=== PATIENT | female | born 1955 | race African-American/Black ===

== ENCOUNTER 2017-09-23 10:54 | Inpatient (IN) ==
[2017-09-23] MEDS ORDERED: SODIUM CHLORIDE 0.9% 500 ML IV STA (11:21)
[2017-09-23] MEDS ORDERED: PANTOPRAZOLE 40 MG VIAL IV STA (11:21)
[2017-09-23] MEDS ORDERED: PANTOPRAZOLE 40 MG VIAL IV ONE (11:26)
[2017-09-23 11:32] LABS: Basophils % 0.7 % (0.0-0.8); Eosinophils # 0.2 10*3/uL (0.0-0.87); Eosinophils % 2.8 % (0.00-10.9); Hemoglobin 9.6 GM/DL (12.0-16.0); Immature Granulocytes % 0.3 %; Immature Granulocytes Absolute 0.02 #; Lymphocytes # 0.9 10*3/uL (1.4-4.0); Lymphocytes % 14.1 % (21.3-54.2); Mean Corpuscular HGB Conc 34.3 GM/DL (32-36); Mean Corpuscular Hemoglobin 30 PG (27-34); Mean Corpuscular Volume 88.6 FL (87-102); Mean Platelet Volume 9.3 FL (9.6-12.0); Monocytes # 0.8 10*3/uL (0.11-0.8); Monocytes % 12.8 % (1.7-12.7); Neutrophils # 4.2 10*3/uL (1.4-7.4); Neutrophils % 69.3 % (38.7-73.9); Platelet Count 300 T/CUMM (130-400); Red Blood Count 3.16 MC/CUMM (3.8-5.5); Red Cell Distribution Width 11.9 % (9.3-17.3); White Blood Count 6.1 T/CUMM (4-12)
[2017-09-23 11:41] LABS: PT Patient Result 10.5 SECS
[2017-09-23 11:51] LABS: Alanine Aminotransferase 17 U/L (13-56); Albumin 3.6 G/DL (3.4-5.0); Alkaline Phosphatase 100 U/L (45-117); Aspartate Amino Transferase 19 U/L (0-37); Bilirubin,Total < 0.39 MG/DL (0.2-1.0); Blood Urea Nitrogen 66 MG/DL (7-18); Calcium 8.8 MG/DL (8.5-10.1); Glucose 73 MG/DL (74-106); Osmolality,Calculated 270.4 MOS/KG (273-304); Sodium 126 MMOL/L (136-145); Total Protein 7.4 G/DL (6.4-8.3)
[2017-09-23] MEDS ORDERED: ONDANSETRON 4 MG/2 ML VIAL IV PRN (13:07)
[2017-09-23] MEDS ORDERED: DEXTROSE 50% 25 GM/50 ML SYRINGE IV ONE (14:32)
[2017-09-23] MEDS ORDERED: DEXTROSE 50% 25 GM/50 ML VIAL IV ONE (14:35)
[2017-09-23] MEDS: SODIUM CHLORIDE 0.9% 1,000 ML IV SCH ×2 (15:01→22:40)
[2017-09-23] MEDS ORDERED: MECLIZINE 25 MG TABLET PO PRN (16:13)
[2017-09-23] MEDS ORDERED: ALBUTEROL 2.5 MG/3 ML NEB RESP TX PRN (19:00)
[2017-09-23] MEDS: MONTELUKAST 10 MG TABLET PO SCH (20:22)
[2017-09-23] MEDS: risperiDONE 0.5 MG TABLET PO SCH (20:22)
[2017-09-23] MEDS: PANTOPRAZOLE 40 MG VIAL IV SCH (22:30)
[2017-09-24 06:09] LABS: Basophils % 0.8 % (0.0-0.8); Eosinophils # 0.2 10*3/uL (0.0-0.87); Eosinophils % 5.4 % (0.00-10.9); Hematocrit 24.2 VOL% (35.7-47.0); Hemoglobin 8.4 GM/DL (12.0-16.0); Immature Granulocytes % 0.3 %; Immature Granulocytes Absolute 0.01 #; Lymphocytes # 1.1 10*3/uL (1.4-4.0); Mean Corpuscular HGB Conc 34.7 GM/DL (32-36); Mean Corpuscular Hemoglobin 31 PG (27-34); Mean Platelet Volume 9.4 FL (9.6-12.0); Monocytes # 0.6 10*3/uL (0.11-0.8); Monocytes % 17.4 % (1.7-12.7); Neutrophils # 1.7 10*3/uL (1.4-7.4); Neutrophils % 46.1 % (38.7-73.9); Platelet Count 300 T/CUMM (130-400); Red Blood Count 2.75 MC/CUMM (3.8-5.5); Red Cell Distribution Width 11.9 % (9.3-17.3); White Blood Count 3.7 T/CUMM (4-12)
[2017-09-24 06:16] LABS: Calcium 8.1 MG/DL (8.5-10.1); Osmolality,Calculated 276.7 MOS/KG (273-304); Potassium 4.4 MMOL/L (3.5-5.1)
[2017-09-24 06:43] LABS: Eosinophils 6 % (0-10); Lymphocytes 32 % (20-55); Platelet Estimate Adequate; Segmented Neutrophils 50 % (50-85); Total Cells Counted 100
[2017-09-24 06:44] LABS: Giant Platelets Few; Hypochromasia 1+; Ovalocytes Slight
[2017-09-24] MEDS: SODIUM CHLORIDE 0.9% 1,000 ML IV SCH ×2 (07:01→17:31)
[2017-09-24] MEDS ORDERED: LIDOCAINE 100 MG/5 ML SYRINGE ONE (10:00)
[2017-09-24] MEDS ORDERED: GLYCOPYRROLATE 0.4 MG/2 ML VIAL ONE (10:00)
[2017-09-24] MEDS ORDERED: PROPOFOL 200 MG/20 ML VIAL IV ONE (10:00)
[2017-09-24] MEDS ORDERED: SODIUM CHLORIDE 0.9% 1,000 ML IV PRN (10:03)
[2017-09-24] MEDS: risperiDONE 0.5 MG TABLET PO SCH ×2 (10:23→21:01)
[2017-09-24] MEDS: FERROUS SULFATE 325 MG TABLET PO SCH (10:23)
[2017-09-24] MEDS: CYANOCOBALAMIN 500 MCG TABLET PO SCH (10:23)
[2017-09-24] MEDS: CETIRIZINE 10 MG TABLET PO SCH (10:23)
[2017-09-24] MEDS: PANTOPRAZOLE 40 MG VIAL IV SCH ×2 (10:23→21:05)
[2017-09-24 15:51] LABS: Hematocrit 29.5 VOL% (35.7-47.0)
[2017-09-24] MEDS: MONTELUKAST 10 MG TABLET PO SCH (21:01)
[2017-09-24] MEDS: METOCLOPRAMIDE 10 MG/10 ML UDCUP PO SCH (21:02)
[2017-09-25] MEDS: SODIUM CHLORIDE 0.9% 1,000 ML IV SCH ×3 (01:16→18:00)
[2017-09-25 04:25] LABS: Basophils # 0.1 10*3/uL (0.0-0.2); Basophils % 1.1 % (0.0-0.8); Eosinophils # 0.2 10*3/uL (0.0-0.87); Hematocrit 29.2 VOL% (35.7-47.0); Hemoglobin 9.8 GM/DL (12.0-16.0); Immature Granulocytes % 0.7 %; Immature Granulocytes Absolute 0.03 #; Mean Corpuscular HGB Conc 33.6 GM/DL (32-36); Mean Corpuscular Hemoglobin 31 PG (27-34); Mean Platelet Volume 9.5 FL (9.6-12.0); Monocytes # 0.8 10*3/uL (0.11-0.8); Monocytes % 16.8 % (1.7-12.7); Neutrophils # 2.4 10*3/uL (1.4-7.4); Neutrophils % 54.4 % (38.7-73.9); Platelet Count 309 T/CUMM (130-400); Red Blood Count 3.21 MC/CUMM (3.8-5.5); Red Cell Distribution Width 12.1 % (9.3-17.3); White Blood Count 4.5 T/CUMM (4-12)
[2017-09-25 04:56] LABS: Calcium 8.1 MG/DL (8.5-10.1); Osmolality,Calculated 285.1 MOS/KG (273-304); Potassium 4.9 MMOL/L (3.5-5.1)
[2017-09-25 05:48] LABS: Band Neutrophils 1 % (0-10); Eosinophils 5 % (0-10); Lymphocytes 33 % (20-55); Segmented Neutrophils 56 % (50-85); Total Cells Counted 100
[2017-09-25 05:49] LABS: Platelet Estimate Normal
[2017-09-25] MEDS: PANTOPRAZOLE 40 MG VIAL IV SCH ×2 (10:02→21:00)
[2017-09-25] MEDS: METOCLOPRAMIDE 10 MG/10 ML UDCUP PO SCH ×2 (10:04→21:00)
[2017-09-25] MEDS: risperiDONE 0.5 MG TABLET PO SCH ×2 (10:04→21:00)
[2017-09-25] MEDS: CYANOCOBALAMIN 500 MCG TABLET PO SCH (10:04)
[2017-09-25] MEDS: FERROUS SULFATE 325 MG TABLET PO SCH (10:05)
[2017-09-25] MEDS: CETIRIZINE 10 MG TABLET PO SCH (10:05)
[2017-09-25] MEDS: MONTELUKAST 10 MG TABLET PO SCH (21:00)
[2017-09-26] MEDS: SODIUM CHLORIDE 0.9% 1,000 ML IV SCH ×2 (02:04→09:43)
[2017-09-26 06:04] LABS: Basophils # 0.1 10*3/uL (0.0-0.2); Eosinophils # 0.3 10*3/uL (0.0-0.87); Eosinophils % 4.9 % (0.00-10.9); Hematocrit 32.2 VOL% (35.7-47.0); Hemoglobin 10.7 GM/DL (12.0-16.0); Immature Granulocytes % 0.3 %; Immature Granulocytes Absolute 0.02 #; Lymphocytes # 1.1 10*3/uL (1.4-4.0); Lymphocytes % 17.3 % (21.3-54.2); Mean Corpuscular HGB Conc 33.2 GM/DL (32-36); Mean Corpuscular Hemoglobin 30 PG (27-34); Mean Corpuscular Volume 91.2 FL (87-102); Mean Platelet Volume 8.7 FL (9.6-12.0); Monocytes # 0.9 10*3/uL (0.11-0.8); Monocytes % 14.7 % (1.7-12.7); Neutrophils # 3.8 10*3/uL (1.4-7.4); Neutrophils % 61.8 % (38.7-73.9); Platelet Count 280 T/CUMM (130-400); Red Blood Count 3.53 MC/CUMM (3.8-5.5); Red Cell Distribution Width 12.1 % (9.3-17.3); White Blood Count 6.1 T/CUMM (4-12)
[2017-09-26 06:23] LABS: Calcium 8.7 MG/DL (8.5-10.1); Osmolality,Calculated 286.7 MOS/KG (273-304); Potassium 5.3 MMOL/L (3.5-5.1)
[2017-09-26] MEDS: PANTOPRAZOLE 40 MG VIAL IV SCH (09:11)
[2017-09-26] MEDS: METOCLOPRAMIDE 10 MG/10 ML UDCUP PO SCH (09:14)
[2017-09-26] MEDS: risperiDONE 0.5 MG TABLET PO SCH (09:14)
[2017-09-26] MEDS: CETIRIZINE 10 MG TABLET PO SCH (09:14)
[2017-09-26] MEDS: FERROUS SULFATE 325 MG TABLET PO SCH (09:15)
[2017-09-26] MEDS: CYANOCOBALAMIN 500 MCG TABLET PO SCH (09:15)
[2017-09-26] MEDS ORDERED: SODIUM POLYSTYRENE SULFATE 15 GM/60 ML BOTTLE PO STA (11:05)
[2017-09-26 12:09] VITALS: BP 151/81
== END 2017-09-26 16:04 | disposition home or self-care (01) | DRG 381 ==
LOC: EDUNIT# → N.ED 10:54 → N.EDINP 12:20 → N.2E 14:22
PROVIDERS: ADMIT Internal Medicine; ATTEND Internal Medicine